=== PATIENT | male | born 1955 | race Caucasian/White ===

== ENCOUNTER → 2021-01-30 | Outpatient (CLI) | payer OTHER, MEDICAID ==
[~2021-01-30] MED LIST: ATIVAN1 MG PO; BENTYL20 MG PO; CATAPRES0.1 MG PO; CIPRO500 MG PO; CLONAZEPAM 1 MG1 M1 PO; COUMADIN 5 MG TA5 M1 PO; ENOXAPARIN60 MG/0.1 SUBQ; FLAGYL500 MG PO; FLEXERIL PO; HYDROCODONE-AP1 EAC6 PO; IBUPROFEN 800800 M1 PO; LIPITOR 20 MG T20 M1 PO; MS CONTIN15 MG PO; NAPROSYN500 MG PO; OXYCODONE HCL 55 MG PO; PERCOCET 5-3251 EACH PO; PROTONIX40 M1 PO; PROZAC20 MG PO; ROBAXIN 750 MG750 M1 PO; TYLENOL325 MG PO; ZOCOR20 MG PO
== END ==
LOC: M.ULTRA 09:30
PROVIDERS: ATTEND Family Medicine
DX: M54.5 Low back pain (principal)

== ENCOUNTER 2021-02-01 16:50 | Emergency (ER) | payer OTHER, MEDICAID ==
[~2021-02-01] VITALS: Ht 177.8 cm; Wt 70.3 kg
[2021-02-01 18:10] VITALS: BP 144/85
== END 2021-02-01 18:13 | disposition home or self-care (01) ==
LOC: M.ERS 16:50
DX: G89.29 Other chronic pain (principal); M54.5 Low back pain; R10.84 Generalized abdominal pain; Z88.8 Allergy status to other drugs, medicaments and biological substances; Z90.49 Acquired absence of other specified parts of digestive tract

== ENCOUNTER → 2021-02-06 | Outpatient (CLI) | payer OTHER, MEDICAID | LOC: M.MRI 07:05 | PROVIDERS: ATTEND Family Medicine | DX: M51.36 Other intervertebral disc degeneration, lumbar region (principal); M47.816 Spondylosis without myelopathy or radiculopathy, lumbar region; M48.061 Spinal stenosis, lumbar region without neurogenic claudication ==

== ENCOUNTER 2021-02-18 10:58 | Inpatient (IN) | payer OTHER, MEDICAID ==
[~2021-02-18] VITALS: Ht 177.8 cm; Wt 72.6 kg
[2021-02-18 11:06] VITALS: BP 152/92
[2021-02-18 11:43] LABS: HEMATOCRIT 36.2 % (42.0-52.0); HEMOGLOBIN 11.5 gm/dL (14.0-18.0); MCHC 31.7 g/dL (28.0-37.0); MCV 78.7 fL (80.0-100.0); MPV 8.4 fl. (7.2-11.1); NUCLEATED RBCS 0 /100WBC; PLATELET COUNT* 290 thou/uL (150-400); RDW-CV 23.6 % (10.5-14.5); WBC 10.2 thou/uL (4.0-11.0)
[2021-02-18 11:50] LABS: CALCIUM 9.1 mg/dL (8.5-10.1); CREATININE 1.1 mg/dL (0.6-1.3); POTASSIUM 3.8 mmol/L (3.5-5.1)
[2021-02-18 11:55] LABS: ALBUMIN 3.8 g/dL (3.4-5.0); TOTAL BILIRUBIN 0.5 mg/dL (<0.1-1.0); TOTAL PROTEIN 7.7 g/dL (6.4-8.2)
[2021-02-18 12:12] LABS: ABSOLUTE BASOPHILS 0.1 thou/uL (0.0-0.2); ABSOLUTE EOSINOPHILS 0.1 thou/uL (0.0-0.7); ABSOLUTE LYMPHOCYTES 0.8 thou/uL (0.8-5.3); ABSOLUTE NEUTROPHILS 9.2 thou/uL (1.6-8.1); PLATELET ESTIMATE ADEQUATE
[2021-02-18 12:13] LABS: HYPOCHROMASIA 1+; OVALOCYTES 1+
[2021-02-18 12:14] LABS: ANISOCYTOSIS 1+
[2021-02-18 13:15] VITALS: BP 153/85
[2021-02-18] MEDS ORDERED: FLAGYL500 M1 PO (14:10)
[2021-02-18] MEDS ORDERED: PERCOCET 10-321 EAC1 PO (14:10)
[2021-02-18] MEDS ORDERED: CIPRO500 M1 PO (14:10)
[2021-02-18 14:20] VITALS: BP 153/85
--- NOTE | 2021-02-18 14:25 | NUR ---
ADMISSION AND ASSESSMENT ARE COMPLETED IN THE ED AND THEN PATIENT IS DISCHARGED TO HOME BY HIMS.
[2021-02-18 14:26] VITALS: BP 153/85
[2021-02-18] MEDS ORDERED: PHENERGAN 25 MG25 M1 PO (14:38)
--- NOTE | 2021-02-18 14:47 | EKG ---
[place] [address] ELECTROCARDIOGRAM REPORT Name: ADOLPH REESE Room: [place] [address] ADM [place] .#: [id number] Admission: 02/18/21 Attend Phys: Mega Schreiber, Discharge: Date of : 53 Date of Service: 02/18/21 1145 Report #: [id number] THIS REPORT FOR: //name// [facility] ED Test Date: 2021-02-18 Test Time: 11:45:16 Pat Name: ADOLPH REESE Department: Room: [facility] Gender: M Cream [employer] Maker: TDS : 1955 Requested By: Enrique Baumann Order Number: [id number] MD: Jose Wyatt Measurements Intervals [place] Rate: 88 P: 67 WA: 183 QRS: 30 QRSD: 109 T: 60 QT: 393 QTc: 476 Interpretive Statements Sinus rhythm Borderline prolonged QT interval Baseline wander in lead(s) V1 Compared to ECG 04/25/2015 11:12:42 Sinus tachycardia no longer present Electronically Signed On 02-18-2021 14:47:41 CDT by Jose Wyatt [email or web address] <ELECTRONICALLY SIGNED> By: Jose Wyatt MD, [facility] 02/18/21 1447 1145 1145 Jose Wyatt MD, [facility] /EPI
== END 2021-02-18 14:48 | disposition home or self-care (01) | DRG 372 ==
LOC: M.ERS 10:58 → M.TBA-ER 13:23
PROVIDERS: Family Medicine; ADMIT Internal Medicine; ATTEND Internal Medicine
DX: A04.9 Bacterial intestinal infection, unspecified (principal); K92.1 Melena; G89.29 Other chronic pain; F41.9 Anxiety disorder, unspecified; F12.90 Cannabis use, unspecified, uncomplicated; F31.9 Bipolar disorder, unspecified; D50.0 Iron deficiency anemia secondary to blood loss (chronic); Z20.822 Contact with and (suspected) exposure to COVID-19; Z98.1 Arthrodesis status; Z90.49 Acquired absence of other specified parts of digestive tract; Z88.8 Allergy status to other drugs, medicaments and biological substances; Z79.899 Other long term (current) drug therapy

== ENCOUNTER → 2021-02-26 | Outpatient (CLI) | payer OTHER, MEDICAID ==
[~2021-02-26] MED LIST changes: +CIPRO500 M1 PO; +FLAGYL500 M1 PO; +PERCOCET 10-321 EAC1 PO; +PHENERGAN 25 MG25 M1 PO
== END ==
LOC: M.PC 11:34
PROVIDERS: ATTEND Anesthesiology Pain Medicine
DX: M54.5 Low back pain (principal); M79.604 Pain in right leg; R10.9 Unspecified abdominal pain; F17.200 Nicotine dependence, unspecified, uncomplicated; F41.9 Anxiety disorder, unspecified; F32.9 Major depressive disorder, single episode, unspecified; Z87.19 Personal history of other diseases of the digestive system; Z79.891 Long term (current) use of opiate analgesic; Z79.899 Other long term (current) drug therapy; Z68.23 Body mass index [BMI] 23.0-23.9, adult; Z88.8 Allergy status to other drugs, medicaments and biological substances